=== PATIENT | female | born 1965 | race Caucasian/White ===

== ENCOUNTER 2017-09-15 19:53 | Emergency (ER) | payer OTHER ==
[~2017-09-15] VITALS: Ht 160 cm; Wt 80.3 kg
[~2017-09-15 19:53] MED LIST: AMOXICILLIN875 MG PO; BACTRIM,SEPT1 TABLET PO; BLOODPRESSURE; CITALOPRAM HBR20 M1 PO; DETROL2 MG PO; EFFEXOR XR150 MG PO; EFFEXOR75 MG PO; IBUPROFEN; KEPPRA500 MG; KEPPRA500 MG PO; LIPITOR40 MG PO; LO-DOSE ASPIRIN81 M1 PO; LOSARTAN POTASS50 MG; LOSARTAN POTASS50 MG PO; MOBIC7.5 MG PO; NIACIN50 MG PO; NIASPAN,SLO-NI500 MG PO; NORTRIPTYLINE H50 MG PO; OXCARBAZEPINE300 MG PO; PERCOCET 5/31 TABLET PO; PREVACID PO; PREVACID15 MG PO; PREVACID30 MG PO; PROVENTIL,2.5 MG/3 M IH; SIMVASTATIN40 MG PO; SYMBICORT60 INHALAT IH; TOLTERODINE TART2 M1 PO; TRAZODONE HCL50 MG PO; VENTOLIN HFA18 GM IH; XANAX0.5 MG PO; ZOCOR; ZYRTEC; ZYRTEC10 M3 PO; [UNRECOGNIZED DRUG - OTHER]; [UNRECOGNIZED DRUG - OTHER]
[2017-09-15 20:28] LABS: HEMATOCRIT 44.1 % (36.0-46.0); MCH 29.7 PG (29.0-34.0); MCHC 34.2 G/DL (30.0-36.0); MCV 86.8 FL (83-99); MEAN PLAT.VOLUME 10.4 uM^3 (9.5-12.4); PLATELET COUNT 308 K/uL (156-360); RBC DIS.WIDTH-CV 12.7 % (11.8-14.6); RED BLOOD COUNT 5.08 M/uL (3.80-5.20); WHITE BLOOD COUNT 11.7 K/uL (4.1-10.2)
[2017-09-15 20:38] LABS: CHLORIDE 101 mEq/L (99-109); POTASSIUM 3.9 mEq/L (3.7-5.4); SODIUM 133 mEq/L (136-147)
[2017-09-15 20:41] LABS: GLUCOSE 166 mg/dL (70-99)
[2017-09-15 20:42] LABS: ANION GAP 11 MEQ/L (2-14)
[2017-09-15 20:43] LABS: TOTAL BILIRUBIN 0.7 mg/dL (0.0-1.0)
[2017-09-15 20:44] LABS: ALKALINE PHOSPHATASE 123 IU/L (3-129); GFR ESTIMATE (CALCULATED) > 59 mL/min/
[2017-09-15 20:45] LABS: UREA NITROGEN (BUN) 16 mg/dL (9-23)
[2017-09-15 20:48] LABS: LIPASE 16 U/L (1.0-51.0)
[2017-09-15 20:54] LABS: QUANTITATIVE HCG < 4.0 MIU/ML
[2017-09-15 22:36] LABS: ADD MIUA? YES; BILIRUBIN NEGATIVE; BLOOD SMALL; COLOR YELLOW ((YELLOW)); GLUCOSE (STRIP) NEGATIVE; KETONES NEGATIVE; LEUKOCYTES NEGATIVE; NITRITE NEGATIVE; PROTEIN (STRIP) NEGATIVE; SPECIFIC GRAVITY 1.027 (1.000-1.030); UROBILINOGEN 0.2 MG/DL (0.2-1.0)
[2017-09-15 22:38] LABS: C DIFF TOXIN NEGATIVE (NEGATIVE)
[2017-09-15 22:40] LABS: BACTERIA NONE SEEN /HPF; EPITHELIAL CELLS RARE /HPF; HYALINE CASTS 0-5 /LPF; MUCUS TRACE /LPF; RED BLOOD CELLS 0-5 /HPF (0-5); UCUL ADDED? NO; WHITE BLOOD CELLS 0-5 /HPF (0-5)
[2017-09-15 22:52] LABS: PROBE CHECK PASS; SPECIMEN PROCESSING CONTROL PASS
[2017-09-15] MEDS ORDERED: BENTYL20 MG PO (23:39)
[2017-09-15] MEDS ORDERED: ZOFRAN ODT4 MG PO (23:39)
[2017-09-16 00:15] VITALS: BP 138/83
== END 2017-09-16 00:22 | disposition home or self-care (01) ==
LOC: RME 19:53 → EME 19:53 → RME 09-16 00:22
PROVIDERS: Physician Assistant
DX: R11.2 Nausea with vomiting, unspecified (principal); E86.0 Dehydration; R10.84 Generalized abdominal pain; E78.5 Hyperlipidemia, unspecified; I10 Essential (primary) hypertension; K21.9 Gastro-esophageal reflux disease without esophagitis; Z86.73 Personal history of transient ischemic attack (TIA), and cerebral infarction without residual deficits; J45.909 Unspecified asthma, uncomplicated; F41.9 Anxiety disorder, unspecified; Z88.1 Allergy status to other antibiotic agents; Z88.6 Allergy status to analgesic agent; Z87.891 Personal history of nicotine dependence
CPT/HCPCS: 80053; 81003; 83605; 83690; 84702; 85027; 87493; 87506; 93005; 99281; 99285; J0500; J2405; J7030

== ENCOUNTER 2018-03-04 15:06 | Emergency (ER) | payer OTHER ==
[~2018-03-04] VITALS: Ht 162.6 cm; Wt 83.2 kg
[~2018-03-04 15:06] MED LIST changes: +BENTYL20 MG PO; +ZOFRAN ODT4 MG PO
[2018-03-04 16:04] LABS: HEMATOCRIT 35.1 % (36.0-46.0); HEMOGLOBIN 12.2 G/DL (11.9-15.5); MCH 30.2 PG (29.0-34.0); MCHC 34.8 G/DL (30.0-36.0); MCV 86.9 FL (83-99); PLATELET COUNT 263 K/uL (156-360); RBC DIS.WIDTH-CV 12.7 % (11.8-14.6); RBC DIS.WIDTH-SD 40.4 % (39-53); RED BLOOD COUNT 4.04 M/uL (3.80-5.20); WHITE BLOOD COUNT 9.5 K/uL (4.1-10.2)
[2018-03-04 16:18] LABS: CHLORIDE 103 mEq/L (99-109); POTASSIUM 3.6 mEq/L (3.7-5.4); SODIUM 139 mEq/L (136-147)
[2018-03-04 16:19] LABS: GLUCOSE 204 mg/dL (70-99)
[2018-03-04 16:23] LABS: CREATININE 0.8 mg/dL (0.6-1.3); GFR ESTIMATE (CALCULATED) > 59 mL/min/
[2018-03-04 16:24] LABS: UREA NITROGEN (BUN) 7 mg/dL (9-23)
[2018-03-04] MEDS ORDERED: TESSALON PERLE100 MG PO (17:26)
[2018-03-04 17:31] VITALS: BP 144/88
== END 2018-03-04 17:59 | disposition home or self-care (01) ==
LOC: EME 15:06
PROVIDERS: Nurse Practitioner Family
DX: B34.9 Viral infection, unspecified (principal); R59.0 Localized enlarged lymph nodes; E78.5 Hyperlipidemia, unspecified; F41.9 Anxiety disorder, unspecified; I10 Essential (primary) hypertension; J45.909 Unspecified asthma, uncomplicated; K21.9 Gastro-esophageal reflux disease without esophagitis; Z86.73 Personal history of transient ischemic attack (TIA), and cerebral infarction without residual deficits; Z88.1 Allergy status to other antibiotic agents; Z88.5 Allergy status to narcotic agent; Z87.891 Personal history of nicotine dependence
CPT/HCPCS: 80048; 85027; 87081; 87651 90; 99281; 99283